=== PATIENT | female | born 1940 | race Caucasian/White ===

== ENCOUNTER 2019-08-19 06:57 | Day surgery (SDC) | payer MEDICARE, OTHER ==
[2019-08-19] MEDS ORDERED: Lactated Ringers 1,000 ML IV SCH (07:00)
[2019-08-19] MEDS ORDERED: DIPRIVAN 200 MG/20 ML IV ONE (09:07)
[2019-08-19] MEDS ORDERED: Xylocaine-Mpf 2% 5 Ml Vial ONE (09:07)
[2019-08-19] MEDS ORDERED: Ketamine HCl 50 MG/ML ONE (09:07)
[2019-08-19 10:34] VITALS: PULSE 74; O2SAT 97
[2019-08-19 10:35] VITALS: BP 170/69
--- NOTE | 2019-08-19 11:29 | OP ---
SURGERY DATE/TIME: 08/19/2019 0915 PREOPERATIVE DIAGNOSES: 1) Hiatal hernia. 2) Epigastric pain. POSTOPERATIVE DIAGNOSES: 1) Hiatal hernia. 2) Epigastric pain. 3) Gastric polyp. PROCEDURES: 1) EGD with biopsy of antrum and distal esophagus. 2) Cold forceps polypectomy gastric polyps. SURGEON: Noah Palomino M.D. ANESTHESIA: MAC. ESTIMATED BLOOD LOSS: None. COMPLICATIONS: None. SPECIMENS: 1) Biopsy of antrum. 2) Biopsy of distal esophagus. 3) Gastric polyps. FINDINGS: Multiple small polyps in the gastric body, moderate sized hiatal hernia. Z-line at 31 cm. Diaphragm hiatus at 36 cm with a 5 cm with hiatal hernia. PATIENT PRESENTATION: This patient presents with epigastric pain and history of hiatal hernia. After discussion of risks, benefits of EGD the patient wished to proceed. DESCRIPTION OF PROCEDURE: The patient was brought to the endoscopy suite and placed in left lateral decubitus position. Placed under MAC anesthesia. Video gastroscope inserted in the mouth. Gastroscope was directly advanced in the esophagus. The esophagus traversed. The stomach insufflated. The pylorus crossed. The first, second portions of the duodenum evaluated appeared completely normal. The scope was withdrawn back to the antrum. There really was not any significant gastritis maybe a very slight antral gastritis but very minimal. Biopsy was taken to rule out Helicobacter pylori. The scope was retroflexed. There was a moderate sized hiatal hernia. The scope straightened, further pulled back and in the body there were multiple 2 to 4 mm pedunculated polyps and one of these was removed in its entirety with cold forceps and sent for specimen with minimal bleeding from the biopsy or polypectomy. The scope removed into the distal esophagus and biopsies were performed. The esophagus did appear pretty normal with biopsy taken to rule out reflux changes. The stomach desufflated. The scope removed. Esophagus otherwise appeared normal. The patient was recovered and taken to PACU in stable condition.
== END 2019-08-19 10:45 | disposition home or self-care (01) ==
LOC: SDC 06:57
PROVIDERS: ATTEND Surgery
DX: K44.9 Diaphragmatic hernia without obstruction or gangrene (principal); R10.13 Epigastric pain; K31.7 Polyp of stomach and duodenum
CPT/HCPCS: 99100; J2704